=== PATIENT | male | born 1985 | race Caucasian/White ===

== ENCOUNTER 2022-06-08 09:17 | Outpatient (CLI) | payer BC, SELFPAY ==
[2022-06-08 14:24] LABS: Albumin* 4.5 g/dL (3.3-5.0)
[2022-06-08 14:25] LABS: Chloride* 106 mmol/L (96-114); Potassium* 4.1 mmol/L (3.6-5.1); Sodium* 142 mmol/L (135-149)
[2022-06-08 14:27] LABS: Cholesterol* 281 mg/dL (90-199); Estimated Glomerular Filt Rate 99 ml/min
[2022-06-08 14:28] LABS: Alanine Aminotransferase* 62 U/L (4-50); Alkaline Phosphatase* 105 U/L (40-150); Aspartate Amino Transferase* 48 U/L (12-35); Bilirubin Total* 0.6 mg/dL (0.1-1.5); Blood Urea Nitrogen* 13 mg/dL (5-24); Calcium* 9.7 mg/dL (8.4-10.6); Carbon Dioxide* 30 mmol/L (20-32); Glucose* 97 mg/dL (60-115); Total Protein* 6.8 g/dL (6.0-8.3); Triglycerides* 223 mg/dL (40-149)
[2022-06-08 14:29] LABS: HDL Cholesterol* 50 mg/dL (>=40); LDL Cholesterol Calculated 186 mg/dL (<100)
== END 2022-06-08 09:18 | disposition home or self-care (01) ==
PROVIDERS: Visit Provider Physician Assistant Medical
DX: Z00.00 Encounter for general adult medical examination without abnormal findings (principal); I10 Essential (primary) hypertension; Z13.6 Encounter for screening for cardiovascular disorders
CPT/HCPCS: 80053; 80061

== ENCOUNTER 2023-09-18 08:28 | Outpatient (CLI) | payer BC, SELFPAY | END 2023-09-18 08:29 | disposition home or self-care (01) | LOC: NFLDREF 09-30 00:34 | PROVIDERS: PCP Physician Assistant Medical; Referring Provider Physician Assistant Medical; Visit Provider Physician Assistant Medical | DX: F32.A Depression, unspecified (principal); I10 Essential (primary) hypertension; E78.01 Familial hypercholesterolemia | CPT/HCPCS: 80053; 80061; 84443 ==